=== PATIENT | male | born 1960 | race American Indian/Alaskan Native ===

== ENCOUNTER 2018-01-14 07:35 | Day surgery (SDC) | payer OTHER ==
[2018-01-13 09:20] VITALS: BMI 28.0
[2018-01-14] MEDS ORDERED: PROPOFOL 20 ML ONE ×2 (08:43)
[2018-01-14 09:34] VITALS: TEMP 97.7
[2018-01-14 11:25] VITALS: BP 109/77; PULSE 60
--- NOTE | 2018-01-17 15:00 | PATH ---
Surgical Pathology Report Patient Name: SALEEM ZAVALA [facility]. Rec. #: [id number] /Age/Gender: 1960 (Age: 57) / M Account: [id number] Location: [facility]-ENDOSCOPY Taken: 01/14/2018 Received: 01/14/2018 Reported: 01/17/2018 Physicians: Laureen Mack M.D. Specimen(s) Received A: 2ND PORTION DUODENUM + DUODENAL BULB B: BX ANTRUM C: BX GE JUNCTION D: GASTRIC BODY POLYPS E: RECTAL POLYP Clinical History Occult bleed, Carl's surveillance, colon cancer screening Postoperative diagnosis: Gastric polyps, GERD, colon polyp, hemorrhoids Final Diagnosis A. DUODENUM, SECOND PORTION AND DUODENAL BULB, BIOPSY: DUODENAL MUCOSA WITHOUT SIGNIFICANT PATHOLOGIC FINDINGS. B. STOMACH, ANTRUM, BIOPSY: GASTRIC ANTRAL MUCOSA WITH MINIMAL CHRONIC INFLAMMATION. IMMUNOHISTOCHEMICAL STAIN FOR H. PYLORI IS NEGATIVE. C. GASTROESOPHAGEAL (EG) JUNCTION, BIOPSY: PREDOMINANTLY SQUAMOUS AND RARE COLUMNAR MUCOSA WITH MILD VASCULAR CONGESTION AND CHANGES OF MILD REFLUX ESOPHAGITIS. NO INTESTINAL METAPLASIA OR DYSPLASIA IDENTIFIED. D. STOMACH, BODY, POLYPS, BIOPSY: FUNDIC GLAND POLYP(S). IMMUNOHISTOCHEMICAL STAIN FOR H. PYLORI IS NEGATIVE. E. RECTUM, POLYP, BIOPSY: POLYPOID COLONIC MUCOSA WITH SMALL LYMPHOID AGGREGATE AND FOCAL SUPERFICIAL HYPERPLASTIC FEATURES. Electronically Signed Aida Giang M.D. Gross Description A. Received in formalin, labeled "biopsy second portion of duodenum and duodenal bulb" are 4 mix, irregular portions of soft tissue ranging from 0.3-0.4 cm. in greatest dimension. The specimens are submitted in toto in one cassette. B. Received in formalin, labeled "biopsy antrum" are 2 mix, irregular portions of soft tissue averaging 0.5 cm. in greatest dimension. The specimens are submitted in toto in one cassette. C. Received in formalin, labeled "biopsy EG junction" are 4 mix, irregular portions of soft tissue ranging from 0.1-0.4 cm. in greatest dimension. The specimens are submitted in toto in one cassette. D. Received in formalin labeled "gastric body polyps," are 3 mix, polypoid portions of soft tissue ranging from 1.0 x 0.9 x 0.3 cm to 1.4 x 0.8 x 0.3 cm. The specimens are submitted in toto in one cassette. E. Received in formalin, labeled "biopsy rectal polyp" is a mix, irregular portion of soft tissue measuring 0.4 cm. in greatest dimension. The specimen is submitted in toto in one cassette. 01/14/201801/14/2018
== END 2018-01-14 11:45 | disposition home or self-care (01) ==
LOC: JASU-ENDO 07:35
PROVIDERS: ATTEND Internal Medicine Gastroenterology
PROC: 0DB98ZX Excision of Duodenum, Via Natural or Artificial Opening Endoscopic, Diagnostic (ICD-10-PCS; 2018-01-14)
PROC: 0DB48ZX Excision of Esophagogastric Junction, Via Natural or Artificial Opening Endoscopic, Diagnostic (ICD-10-PCS; 2018-01-14)
PROC: 0DBP8ZX Excision of Rectum, Via Natural or Artificial Opening Endoscopic, Diagnostic (ICD-10-PCS; 2018-01-14)
PROC: 0DB68ZX Excision of Stomach, Via Natural or Artificial Opening Endoscopic, Diagnostic (ICD-10-PCS; principal; 2018-01-14 09:00)
DX: K62.1 Rectal polyp (principal); K64.8 Other hemorrhoids; K31.7 Polyp of stomach and duodenum; K44.9 Diaphragmatic hernia without obstruction or gangrene; K22.2 Esophageal obstruction; K21.0 Gastro-esophageal reflux disease with esophagitis; K92.1 Melena
CPT/HCPCS: 88305-TC; 88342-TC

== ENCOUNTER 2025-01-05 05:24 | Day surgery (SDC) | payer BC ==
[2025-01-01 13:24] VITALS: BMI 25.2
[2025-01-05 12:11] VITALS: TEMP 97.9
[2025-01-05 12:32] VITALS: RESP 18
[2025-01-05 13:23] VITALS: BP 119/70; PULSE 64
== END 2025-01-05 13:23 | disposition home or self-care (01) ==
LOC: JASU-ENDO 05:24
PROVIDERS: ATTEND Internal Medicine Gastroenterology
PROC: 0DB98ZX Excision of Duodenum, Via Natural or Artificial Opening Endoscopic, Diagnostic (ICD-10-PCS; 2025-01-05)
PROC: 0DB78ZX Excision of Stomach, Pylorus, Via Natural or Artificial Opening Endoscopic, Diagnostic (ICD-10-PCS; 2025-01-05)
PROC: 0DB68ZX Excision of Stomach, Via Natural or Artificial Opening Endoscopic, Diagnostic (ICD-10-PCS; 2025-01-05)
PROC: 0DB28ZX Excision of Middle Esophagus, Via Natural or Artificial Opening Endoscopic, Diagnostic (ICD-10-PCS; 2025-01-05)
PROC: 0DB48ZX Excision of Esophagogastric Junction, Via Natural or Artificial Opening Endoscopic, Diagnostic (ICD-10-PCS; 2025-01-05)
PROC: 0DBL8ZX Excision of Transverse Colon, Via Natural or Artificial Opening Endoscopic, Diagnostic (ICD-10-PCS; principal; 2025-01-05 11:30)
DX: Z12.11 Encounter for screening for malignant neoplasm of colon (principal); D12.3 Benign neoplasm of transverse colon; K64.8 Other hemorrhoids; K63.89 Other specified diseases of intestine; Z86.0100 Personal history of colon polyps, unspecified; K29.50 Unspecified chronic gastritis without bleeding; K44.9 Diaphragmatic hernia without obstruction or gangrene; K21.00 Gastro-esophageal reflux disease with esophagitis, without bleeding; K31.A12 Gastric intestinal metaplasia without dysplasia, involving the body (corpus)
CPT/HCPCS: 82962; 88305-TC; 88342-TC